=== PATIENT | male | born 1975 | race Two or more races ===

== ENCOUNTER 2016-10-06 20:23 | Observation (INO) | payer OTHER ==
[~2016-10-06] VITALS: Ht 167.6 cm; Wt 68.5 kg
[2016-10-06] MEDS ORDERED: ONDANSETRON 2MG/ML, 2ML IVPush ONE (21:00)
[2016-10-06] MEDS ORDERED: SODIUM CHLORIDE FLUSH 10ML SYR IVF ONE (21:00)
[2016-10-06] MEDS ORDERED: SODIUM CHLORIDE 0.9% 1,000ML IVBOLUS ONE (21:00)
[2016-10-06] MEDS ORDERED: HYDROmorphone 1 MG/ML, 1ML ONE ×2 (21:15→22:11)
[2016-10-06] MEDS ORDERED: ONDANSETRON 2MG/ML, 2ML ONE (21:15)
[2016-10-06] MEDS: HYDROmorphone 1 MG/ML, 1ML IVPush PRN ×2 (21:16→22:13)
[2016-10-06] MEDS ORDERED: GADOBUTROL 7.5 MMOL/7.5 ML PFS ONE (23:46)
[2016-10-07 02:55] VITALS: BP 147/81
[2016-10-07] MEDS ORDERED: PROMETHAZINE 25 MG/ML, 1ML IM PRN (03:00)
[2016-10-07] MEDS ORDERED: MORPHINE SULFATE 4 MG/ML, 1ML IV PRN (03:00)
[2016-10-07] MEDS: OXYcodone/APAP 5/325MG TABLET PO PRN ×3 (03:10→11:29)
[2016-10-07] MEDS ORDERED: SODIUM CHLORIDE FLUSH 3ML SYRINGE IVF SCH (09:00)
[2016-10-07 09:40] VITALS: BP 117/83
[2016-10-07 15:05] VITALS: BP 123/72
[2016-10-07] MEDS ORDERED: OXYC5CAP4 PO (15:23)
[2016-10-07] MEDS ORDERED: OXYC-302 PO (15:30)
== END 2016-10-07 15:50 | disposition home or self-care (01) ==
LOC: ED 21:29 → INTOOBSV 10-07 00:28 → EDIP 10-07 00:28 → 4NOR 10-07 02:35 → UNDODISIN 10-07 15:50
PROVIDERS: ADMIT Orthopaedic Surgery Orthopaedic Surgery of the Spine; ATTEND Orthopaedic Surgery Orthopaedic Surgery of the Spine
DX: S50.12XA Contusion of left forearm, initial encounter (principal); S57.82XA Crushing injury of left forearm, initial encounter; W23.0XXA Caught, crushed, jammed, or pinched between moving objects, initial encounter; Y93.89 Activity, other specified; Y92.89 Other specified places as the place of occurrence of the external cause; Y99.8 Other external cause status
CPT/HCPCS: 73060; 73080; 73090; 73220; 93005; 96361; 96374; 96375; 96376; 99285; A9585; G0378; J1170; J2405; J7030